=== PATIENT | male | born 2005 | race Two or more races ===

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

== ENCOUNTER 2024-08-01 14:17 | Inpatient (IN) | payer BC, MEDICAID ==
[~2024-08-01] VITALS: Ht 175.3 cm; Wt 77.7 kg
--- NOTE | 2024-08-01 14:24 | ED.PDOC ---
GI ASSESSMENT HPI Comments 19Y M with PMHx gastritis presents to ED via EMS for chief complaint abd pain x3days with nausea, vomiting, and poor appetite. Pt denies diarrhea, chest pain, and SOB. Pt has been dx with gastritis in the past and states he is experiencing similar symptoms. Pt was previously prescribed Pepsid. Time Seen by MD: 14:16 Primary Care Provider: CALE Allergies: Coded Allergies: NO KNOWN ALLERGIES (Unverified , 04/17/12) Information Source: Patient, Emergency Med Personnel Mode of Arrival: EMS Brought in by: EMS Timing: Days Duration: Since onset Prehospital treatment: IVF Quality: Sharp Vomitus: Watery Stool: Normal Severity: Moderate Recent: None Recent Hx of: None Pain Location: Diffuse Modifying Factors: Nothing Associated sign and symptoms: Nausea, Vomiting, Abdominal Pain Past Medical History Past Medical History (Other): Gastritis Surgical History: Denies all surgeries Family History Family History: Reviewed,noncontributory to illness Social History Smoker: Cigarettes Alcohol: Denies ETOH Use Drugs: Denies Drug Use Lives In: Home Constitutional: denies: chills, diaphoresis, fatigue, fever, malaise, sweats, weakness, others EENTM: denies: blurred vision, double vision, ear bleeding, ear discharge, ear drainage, ear pain, ear ringing, eye pain, eye redness, hearing loss, mouth pain, mouth swelling, nasal discharge, nose bleeding, nose congestion, nose pain, photophobia, tearing, throat pain, throat swelling, voice changes, others Respiratory: denies: cough, hemoptysis, orthopnea, SOB at rest, shortness of breath, SOB with excertion, stridor, wheezing, others Cardiovascular: denies: chest pain, dizzy spells, diaphoresis, Dyspnea on exertion, edema, irregular heart beat, left arm pain, lightheadedness, palpitations, PND, syncope, others Gastrointestinal: reports: abdominal pain, nausea, poor appetite, vomiting; denies: abdomen distended, blood streaked bowels, constipated, diarrhea, dysphagia, difficulty swallowing, hematemesis, melena, poor fluid intake, rectal bleeding, rectal pain, others Genitourinary: denies: burning, dysuria, flank pain, frequency, hematuria, incontinence, penile discharge, penile sore, pain, testicle pain, testicle swelling, urgency, others Neurological: denies: dizziness, fainting, headache, left sided numbness, left sided weakness, numbness, paresthesia, pre-existing deficit, right sided numbness, right sided weakness, seizure, speech problems, tingling, tremors, weakness, others Musculoskeletal: denies: back pain, gout, joint pain, joint swelling, muscle pain, muscle stiffness, neck pain, others Integumetry: denies: bruises, change in color, change in hair/nails, dryness, laceration, lesions, lumps, rash, wounds, others Allergic/Immunocompromised: denies: Difficulty Healing, Frequent Infections, H ana, Itching, others Hematologic/Lymphatic: denies: anemia, blood clots, easy bleeding, easy bruising, swollen glands, others Endocrine: denies: excessive hunger, excessive sweating, excessive thirst, excessive urination, flushing, intolerance to cold, intolerance to heat, unexplained weight gain, unexplained weight loss, others Psychiatric: denies: anxiety, bipolar disorder, depression, hopeless, panic disorder, schizophrenia, sleepless, suicidal, others All Other Systems: Reviewed and Negative Physical Exam General Appearance: Moderate Distress, Normal HEENT: Normal ENT Inspection, Pharynx Normal, TMs Normal Neck: Full Range of Motion, Non-Tender, Normal, Normal Inspection Respiratory: Chest Non-Tender, Lungs Clear, No Accessory Muscle Use, No Respiratory Distress, Normal Breath Sounds Cardiovascular: No Edema, No JVD, No Murmur, No Gallop, Normal Peripheral Pulses, Regular Rate/Rhythm Breast Exam: Deferred Gastrointestinal: No Organomegaly, Non Tender, No Pulsatile Mass, Normal Bowel Sounds, Soft Genitalia: Deferred Pelvic: Deferred Rectal: Deferred Extremities: No calf tenderness, Normal capillary refill, Normal inspection, Normal range of motion, Non-tender, No pedal edema Musculoskeletal : Apperance: Normal Neurologic: Alert, lead mechanical engineer II-XII nml as Tested, No Motor Deficits, Normal Affect, Normal Mood, No Sensory Deficits Cerebellar Function: NOT DONE Reflexes: NOT DONE Skin: Dry, Normal Color, Warm Peripheral Pulses: 3+ Radial (R), 3+ Radial (L) Lymphatic: No Adenopathy Was a procedure done? Was a procedure done?: No GI differential Dx Differential Diagnosis: Constipation, Diverticular disease, Esophagitis, Gastritis/PUD, Gastroenteritis, Electrolyte Imbalance, Food Poisoning, Bacterial, Viral X-Ray, Labs, Meds, VS Vital Signs Date Time Temp Pulse Resp B/P (MAP) Pulse Ox O2 Delivery O2 Flow Rate FiO2 08/01/24 14:30 98.1 65 18 114/67 (83) 97 Lab Test 08/01/24 14:34 Range/Units White Blood Count 12.3 H 4.4-10.8 10^3/uL Red Blood Count 5.02 4.5-5.90 10^6/uL Hemoglobin 15.3 13.5-17.5 g/dL Hematocrit 44.9 41.0-53.0 % Mean Corpuscular Volume 89.4 80.0-100.0 fL Mean Corpuscular Hemoglobin 30.4 28.0-32.0 pg Mean Corpuscular Hemoglobin Concent 34.0 32.0-36.0 g/dL Red Cell Distribution Width 12.4 11.8-14.3 % Platelet Count 371 140-450 10^3/uL Mean Platelet Volume 7.8 6.9-10.8 fL Neutrophils (%) (Auto) 80.7 H 37.0-80.0 % Lymphocytes (%) (Auto) 14.8 10.0-50.0 % Monocytes (%) (Auto) 4.2 0.0-12.0 % Eosinophils (%) (Auto) 0.1 0.0-7.0 % Basophils (%) (Auto) 0.2 0.0-2.0 % Neutrophils # (Auto) 10.0 H 1.6-8.6 10 ^3/uL Lymphocytes # (Auto) 1.8 0.4-5.4 10 ^3/uL Monocytes # (Auto) 0.5 0-1.3 10 ^3/uL Eosinophils # (Auto) 0 0-0.8 10 ^3/uL Basophils # (Auto) 0 0-0.2 10 ^3/uL Nucleated Red Blood Cells 0.0 % Sodium Level 141 136-145 mmol/L Potassium Level 4.0 3.5-5.1 mmol/L Chloride Level 104 98-107 mmol/L Carbon Dioxide Level 27 20-31 mmol/L Anion Gap 10 5-15 Blood Urea Nitrogen 19 9-23 mg/dL Creatinine 1.00 0.700-1.30 mg/dL Glomerular Filtration Rate Calc 110 >90 mL/min BUN/Creatinine Ratio 19.0 10.0-20.0 Serum Glucose 109 H 74-106 mg/dL Calcium Level 10.5 H 8.7-10.4 mg/dL Patient alert. Complaining of abdominal pain. Has been having symptoms for few days. Vitals stable. Answering all questions. Abdomen is soft. Establish intravenous access. Was given fluids. Was given morphine. Was given Zofran. Time of 1ST Reevaluation: 14:46 Reevaluation 1ST: Unchanged Patient Education/Counseling: Diagnosis, Treatment Family Education/Counseling: No Family Present Additional Information I reviewed the following notes from patient's past medical encounters: [facility]2021, 05/24/2019, 06/29/2015 The following tests were ordered, and results were reviewed by me: CBC, BMP, UA, drug screen Additional Information was gathered from interviewing the following independent historians: EMS I discussed treatment and results with medical personnel and hospitalist. Departure 1 Departure Time of Disposition: 14:28 Impression: Primary Impression: Acute abdominal pain Additional Impression: Gastroenteritis Disposition: ADMITTED INPATIENT Admit to: Med Surg Condition: Guarded Critical Care Note Critical Care Time?: No Stability Stability form required: No Heart Score Heart Score: Heart Score Response (Comments) Value History N/A 0 EKG N/A 0 Age N/A 0 Risk Factors N/A 0 Troponin N/A 0 Total 0 I personally scribed for VÍCTOR GONZALEZ MD ([email or web address]) on 08/01/24 at 14:24. Electronically submitted by Leslie Prescott (CNS Response). I personally scribed for VÍCTOR GONZALEZ MD ([email or web address]) on 08/01/24 at 15:16. Electronically submitted by Leslie Prescott (CNS Response). VÍCTOR GONZALEZ MD Aug 01, 2024 14:24
[2024-08-01 14:49] LABS: Basophils # (auto) 0 10 ^3/uL (0-0.2); Basophils % (auto) 0.2 % (0.0-2.0); Eosinophils # (auto) 0 10 ^3/uL (0-0.8); Eosinophils % (auto) 0.1 % (0.0-7.0); Hematocrit 44.9 % (41.0-53.0); Hemoglobin 15.3 g/dL (13.5-17.5); Lymphocytes # (auto) 1.8 10 ^3/uL (0.4-5.4); Lymphocytes % (auto) 14.8 % (10.0-50.0); Mean Corpuscular Hemoglobin 30.4 pg (28.0-32.0); Mean Corpuscular Volume 89.4 fL (80.0-100.0); Monocytes # (auto) 0.5 10 ^3/uL (0-1.3); Monocytes % (auto) 4.2 % (0.0-12.0); Neutrophils % (auto) 80.7 % (37.0-80.0); Platelet Count (auto) 371 10^3/uL (140-450); Red Blood Cells 5.02 10^6/uL (4.5-5.90); Red Cell Distribution Width 12.4 % (11.8-14.3); White Blood Cell 12.3 10^3/uL (4.4-10.8)
[2024-08-01 14:59] LABS: Chloride 104 mmol/L (98-107); Sodium 141 mmol/L (136-145)
[2024-08-01 15:00] LABS: Anion Gap 10 (5-15); Carbon Dioxide 27 mmol/L (20-31)
[2024-08-01 15:05] LABS: Blood Urea Nitrogen 19 mg/dL (9-23); Calcium 10.5 mg/dL (8.7-10.4); Glucose 109 mg/dL (74-106)
[2024-08-01] MEDS ORDERED: MORPHINE SULFATE INJ 2 MG/ml SYRG IV PRN (16:30)
[2024-08-01] MEDS ORDERED: SODIUM CHLORIDE 0.9% 1,000 ML IV SCH (16:30)
[2024-08-01] MEDS ORDERED: NITROGLYCERIN 0.4 MG SL TAB SL PRN (16:30)
--- NOTE | 2024-08-01 16:50 | DVH ---
CT ABDOMEN AND PELVIS WITHOUT CONTRAST CLINICAL HISTORY: colitis TECHNIQUE: Multiple contiguous axial images of the abdomen and pelvis without intravenous contrast. The images were reformatted degenerate coronal and sagittal reconstructions. All CT scans at this medical facility are performed using dose modulation techniques as appropriate t o a performed exam including the following:Automated exposure control was utilized; adjustment of the MA and/or KV according to patient size; and use of iterative reconstruction technique. Radiation Dose Information: CT Dose: CTDI volume is 12 mGy. Dose-length product is 727 mGy*cm Comparison: None FINDINGS: Evaluation of the abdomen and pelvis is limited without intravenous contrast. The liver, gallbladder, pancreas, kidneys, adrenal glands, and spleen appear within normal limits. There is no gross evidence of abdominal lymphadenopathy. There is no free fluid or free air. The stomach grossly appears unremarkable. The small and large bowel loops demonstrate normal caliber . There is large amount of stool throughout the colon. The appendix is not seen. There are no secon malena signs of acute appendicitis. The abdominal aorta and IVC appear within normal limits. The bladder appears unremarkable for the degree of distention. Pelvic organ appears within normal wallace its. There is no gross evidence of a pelvic mass. There is no free fluid collection. Lung bases are clear. There is no acute osseous abnormality. IMPRESSION: 1. There is no acute process in the abdomen and pelvis. 2. Large amount of stool throughout the colon. HS:Y
[2024-08-01] MEDS: SODIUM CHLORIDE 0.9% 1,000 ML IV ONE (17:13)
[2024-08-01] MEDS: ONDANSETRON HCL 4 MG/2 ML VIAL IV ONE (17:15)
[2024-08-01] MEDS: cefTRIAXone 1GM/50ML D5W 50 ML IV ONE (17:17)
--- NOTE | 2024-08-01 17:32 | DVHHPRES ---
History of Present Illness Resident Creating Document: YESSICA REYES RESIDENT Reason for Visit: acute abdominal pain with hematemesis History of Present Illness 19-year-old male patient with history of gastritis and clavicle fracture in 2019, presented with the acute epigastric abdominal pain and hematemesis. The pain is described as severe, burning quality and rated as 9/10 intensity. The patient reports similar episodes 3 days ago and a history of recurrent gastritis symptoms over the past 7 months he reports not having appetite when this abdominal pain develops, he feels the food will make the pain worse. Previously he manage his condition with Pepcid and Zofran at home, but this time he presented to the hospital due to associated vomiting of moderate amount of bright red blood and history of dark stools. The patient also experienced intermittent constipation. He denies eating spicy foods or other aggravating foods. He smokes 3 cigarettes per day and denies using alcohol , marijuana or any other drugs. Patient's vital signs are stable CT abdomen showed Large amount of stool throughout the colon. Based on this patient's clinical status this patient will be admitted, GI was consulted and the patient was started on sucralfate, pantoprazole, lactate Ringer 100 mL /h and patient was placed on NPO. Morphine was started for pain management and Zofran to control nausea. Past medical history: Gastritis Past surgical history: Right clavicle fracture repair: 2019 Family history: Patient's father has been diagnosed with a Helicobacter pylori. Social history: Patient smokes 3 cigarettes, denies using alcohol or drugs Primary care doctor:Dr. Lopez GI: Constipation, Gastritis Past Medical History Gastritis Past Surgical History: Other (Right clavicle fracture repair) Smoke: <1 pack per day ALCOHOL: none Drugs: None Lives: with Family Domestic Violence: Neg Review of Systems Review of Systems Constitutional: No: Fever, Chills, Sweats, Weakness, Malaise, Other Eyes: No: Pain, Vision change, Conjunctivae inflammation, Eyelid inflammation, Other, Redness ENT: No: Ear pain, Ear discharge, Nose pain, Nose discharge, Nose congestion, Mouth pain, Mouth swelling, Throat pain, Throat swelling, Other Respiratory: No Wheezing, Hemoptysis, Pleuritic Pain, Sputum, Wheezing, Other Cardiovascular: No: Chest Pain, Palpitations, Orthopnea, Paroxysmal Noc. Dyspnea, Edema, Lt Headedness, Other Gastrointestinal: Reports burning epigastric pain, hematemesis, black stools, intermittent constipation episode, nausea and vomiting. Musculoskeletal: No: other, neck pain, shoulder pain, arm pain, back pain, hand pain, leg pain, foot pain Neurological:; No: Weakness, Numbness, Incoordination, Change in speech, Confusion, Seizures Allergies: Coded Allergies: NO KNOWN ALLERGIES (Unverified , 04/17/12) Medications Current Medications Medications Dose Ordered Sig/Brooke Route Start Time Stop Time Status Last Admin Dose Admin Acetaminophen 650 mg Q6HP PRN PO 08/01/24 16:30 Morphine Sulfate 2 mg Q4HPRN PRN IV 08/01/24 16:30 Nitroglycerin 0.4 mg Q5MINP PRN SL 08/01/24 16:30 Morphine Sulfate 2 mg Q30M PRN IV 08/01/24 16:30 Pantoprazole Sodium 40 mg DAILY IV 08/02/24 10:00 UNV Sucralfate 1 gm BID@0600,2200 GT 08/01/24 22:00 UNV Lactated Ringer's 1,000 ml @ 100 mls/hr Q10H IV 08/01/24 17:15 UNV Exam Vital Signs Vital Signs Date Time Temp Pulse Resp B/P (MAP) Pulse Ox O2 Delivery O2 Flow Rate FiO2 08/01/24 14:30 98.1 65 18 114/67 (83) 97 Exam Examination General Appearance: Alert, Oriented X3, Cooperative, moderate acute distress Respiratory: Clear to auscultation, Normal air movement Cardiovascular: Regular rate, Normal S1, Normal S2 Abdominal: Normal bowel sounds Extremities: No cyanosis, No edema, Normal pulses, No tenderness/swelling Skin: No rashes, No breakdown Neuro: Normal gait, Normal speech, Strength at 5/5 X4 ext, Normal tone, Sensation intact, Reflexes 2+ Psych/Mental Status: Mental status NL, Mood NL Labs/Xrays Labs Test 08/01/24 16:44 08/01/24 14:34 Range/Units White Blood Count 12.3 H 4.4-10.8 10^3/uL Red Blood Count 5.02 4.5-5.90 10^6/uL Hemoglobin 15.3 13.5-17.5 g/dL Hematocrit 44.9 41.0-53.0 % Mean Corpuscular Volume 89.4 80.0-100.0 fL Mean Corpuscular Hemoglobin 30.4 28.0-32.0 pg Mean Corpuscular Hemoglobin Concent 34.0 32.0-36.0 g/dL Red Cell Distribution Width 12.4 11.8-14.3 % Platelet Count 371 140-450 10^3/uL Mean Platelet Volume 7.8 6.9-10.8 fL Neutrophils (%) (Auto) 80.7 H 37.0-80.0 % Lymphocytes (%) (Auto) 14.8 10.0-50.0 % Monocytes (%) (Auto) 4.2 0.0-12.0 % Eosinophils (%) (Auto) 0.1 0.0-7.0 % Basophils (%) (Auto) 0.2 0.0-2.0 % Neutrophils # (Auto) 10.0 H 1.6-8.6 10 ^3/uL Lymphocytes # (Auto) 1.8 0.4-5.4 10 ^3/uL Monocytes # (Auto) 0.5 0-1.3 10 ^3/uL Eosinophils # (Auto) 0 0-0.8 10 ^3/uL Basophils # (Auto) 0 0-0.2 10 ^3/uL Nucleated Red Blood Cells 0.0 % Sodium Level 141 136-145 mmol/L Potassium Level 4.0 3.5-5.1 mmol/L Chloride Level 104 98-107 mmol/L Carbon Dioxide Level 27 20-31 mmol/L Anion Gap 10 5-15 Blood Urea Nitrogen 19 9-23 mg/dL Creatinine 1.00 0.700-1.30 mg/dL Glomerular Filtration Rate Calc 110 >90 mL/min BUN/Creatinine Ratio 19.0 10.0-20.0 Serum Glucose 109 H 74-106 mg/dL Calcium Level 10.5 H 8.7-10.4 mg/dL Assessment/Plan Assessment/Plan #Septicemia likely due to gastroenteritis based on WBC 12.3 , Lactic acid 2.3 #upper GI bleeding likely due to erosive gastropathy #Acute epigastric pain secondary to gastropathy? duodenopathy? #Hematemesis - patient is hemodynamically stable - admit to med surge - pantoprazole 40 mg IV b.i.d. - Carafate b.i.d. - NPO - Lactate Ringer's IV - COVID-19 test - Influenza type a type B test - EKG - Coagulation panel - H pylori urea breath test - Chest x-rays - Hepatic panel - cafetriaxone iv - Metronidazole IV - KUB #Nicotine dependency - smoking cessation counseling # Severe constipation - dulcolax 10 mg PO - Lactulose 60 mg PO Case discussed with Dr. Ca Goals of care discussed with the patient for 28 minutes Code status: Full code Plan discussed with: Patient My Orders Orders - YESSICA REYES RESIDENT Procedure Category Date Status Time Admit ADMIT 08/01/24 Transmitted 16:27 Allergies MAYA 08/01/24 In Process 16:27 Code Status CODE 08/01/24 Transmitted 16:27 Complete Blood Count LAB 08/02/24 Verified 04:00 Comprehensive LAB 08/02/24 Verified Metabolic Panel 04:00 Npo (Nothing By DIET 08/01/24 Transmitted Mouth) Diet Dinner Acetaminophen Tablet PHA 08/01/24 In Process (Tylenol Tablet) 16:30 Morphine Sulfate PHA 08/01/24 In Process Injection 16:30 Nitroglycerin PHA 08/01/24 In Process Sublingual (Ntrostat 16:30 Morphine Sulfate PHA 08/01/24 In Process Injection 16:30 Oxygen By Nasal RT 08/01/24 Transmitted Cannula 16:27 Stat Ekg For Chest MAYA 08/01/24 In Process Pain 16:27 Notify Of Changes MAYA 08/01/24 In Process From Base 16:27 Linux Admin Engineer For [facility] 08/01/24 In Process 24 Hours 16:27 Emergency Dysrhythmia MAYA 08/01/24 In Process Protocol 16:27 Rhythm Strips Once [facility] 08/01/24 In Process Every Shift 16:27 Stool Occult Blood LAB 08/01/24 Logged 16:29 Covid19 Antigen [place] LAB 08/01/24 Logged Rapid Influenza A&B LAB 08/01/24 Logged 16:29 Thyroid Stimulating LAB 08/01/24 Logged Hormone 16:29 Pantoprazole PHA 08/02/24 Logged (Protonix) 10:00 Pantoprazole PHA 08/01/24 Logged (Protonix) 17:15 Sucralfate Susp PHA 08/01/24 Logged (Carafate Susp) 17:15 Sucralfate Susp PHA 08/01/24 Logged (Carafate Susp) 22:00 * [facility] [employer] CONS 08/01/24 Transmitted 17:02 Lactated Ringer's PHA 08/01/24 Logged 17:15 Chest Portable XY 08/01/24 Logged 17:02 H. Pylori Urea Breath LAB 08/01/24 Logged Test 17:02 Hemoglobin A1c LAB 08/01/24 In Process 17:02 Vitamin B12 LAB 08/01/24 In Process 17:02 Folate (Folic Acid) LAB 08/01/24 In Process 17:02 Lactic Acid W/ Reflex LAB 08/01/24 Logged Order 17:06 Prothrombin Time W/ LAB 08/01/24 Logged INR 17:06 Urinalysis LAB 08/01/24 Uncollected 17:06 Date of Service: Aug 01, 2024 Billing Provider: SANDRA CA MD Common Visit Codes: [id number] INP/OBS CARE (HIGH) YESSICA REYES RESIDENT Aug 01, 2024 17:32 SANDRA CA MD Aug 01, 2024 20:18
[2024-08-01 17:59] LABS: INR 1.18 (0.9-1.15); Prothrombin Time 12.4 sec (9.3-11.8)
[2024-08-01 18:05] LABS: Folate (Folic Acid) 19.86 ng/mL (>5.38)
[2024-08-01 18:07] LABS: Lactic Acid w/Reflex 2.3 mmol/L (0.4-2.0)
[2024-08-01] MEDS: PANTOPRAZOLE 40 MG/10 ML VIAL INJ IV ONE (18:09)
[2024-08-01] MEDS: metroNIDAZOLE 500MG/100ML 100 ML IV ONE (18:10)
[2024-08-01] MEDS: MORPHINE SULFATE INJ 2 MG/ml SYRG IV PRN (18:15)
--- NOTE | 2024-08-01 18:24 | DVH ---
CHEST RADIOGRAPH Indication: rule out PNA Technique: Single frontal view of the chest was obtained Comparison: CHEST PORTABLE on DOS: 06/17/21 FINDINGS: Lines and Tubes: None Lungs: No focal consolidation. Pleura: No effusion. No pneumothorax. Cardiomediastinal contours: Unremarkable Bones: No acute osseous abnormality. IMPRESSION: No acute cardiopulmonary disease.
[2024-08-01] MEDS: SUCRALFATE 1 GM/10 ML ORAL SUSP GT ONE (18:33)
[2024-08-01] MEDS: LACTULOSE 20Gm/30ML SOLN PO ONE (19:42)
[2024-08-01] MEDS: BISACODYL 5 MG EC TAB PO ONE (19:52)
[2024-08-01 20:29] LABS: Albumin 4.5 g/dL (3.2-4.8); Bilirubin, Direct 0.1 mg/dL (<0.3); Bilirubin, Total 0.4 mg/dL (0.2-1.0)
[2024-08-01] MEDS: LACTATED RINGER'S 1,000 ML IV SCH (20:30)
[2024-08-01] MEDS ORDERED: SUCRALFATE 1 GM/10 ML ORAL SUSP GT SCH (22:00)
[2024-08-02] VITALS (7 sets, daily range): BP systolic 95–125; BP diastolic 55–72; PULSE 60–79; RESP 16–20; TEMP 97.8–99.6; O2SAT 93–100
[2024-08-02] MEDS: metroNIDAZOLE 500MG/100ML 100 ML IV SCH (00:04)
[2024-08-02] MEDS: SUCRALFATE 1 GM/10 ML ORAL SUSP PO SCH (00:04)
[2024-08-02] MEDS: ONDANSETRON HCL 4 MG/2 ML VIAL IV ONE (07:02)
[2024-08-02 07:47] LABS: Basophils # (auto) 0 10 ^3/uL (0-0.2); Basophils % (auto) 0.2 % (0.0-2.0); Eosinophils # (auto) 0 10 ^3/uL (0-0.8); Hemoglobin 13.1 g/dL (13.5-17.5); Lymphocytes # (auto) 2.6 10 ^3/uL (0.4-5.4); Lymphocytes % (auto) 19.9 % (10.0-50.0); Mean Corpuscular Hemoglobin 30.7 pg (28.0-32.0); Mean Corpuscular Hgb Conc. 34.5 g/dL (32.0-36.0); Mean Corpuscular Volume 88.9 fL (80.0-100.0); Monocytes # (auto) 1.2 10 ^3/uL (0-1.3); Monocytes % (auto) 9.2 % (0.0-12.0); Neutrophils # (auto) 9.3 10 ^3/uL (1.6-8.6); Neutrophils % (auto) 70.7 % (37.0-80.0); Platelet Count (auto) 305 10^3/uL (140-450); Red Blood Cells 4.27 10^6/uL (4.5-5.90); Red Cell Distribution Width 12.5 % (11.8-14.3); White Blood Cell 13.1 10^3/uL (4.4-10.8)
[2024-08-02 08:01] LABS: Alanine Aminotransferase 18 U/L (7-40); Albumin 4.1 g/dL (3.2-4.8); Alkaline Phosphatase 71 U/L (46-116); Anion Gap 9 (5-15); Aspartate Aminotransferase 13 U/L (13-40); BUN/Creatinine Ratio 22.4 (10.0-20.0); Blood Urea Nitrogen 22 mg/dL (9-23); Calcium 9.6 mg/dL (8.7-10.4); Carbon Dioxide 26 mmol/L (20-31); Glucose 104 mg/dL (74-106); Potassium 3.8 mmol/L (3.5-5.1); Sodium 143 mmol/L (136-145)
[2024-08-02 08:02] LABS: Bilirubin, Total 0.3 mg/dL (0.2-1.0); Total Protein 6.5 g/dL (5.7-8.2)
[2024-08-02 08:06] LABS: Chloride 108 mmol/L (98-107)
[2024-08-02] MEDS: PANTOPRAZOLE 40 MG/10 ML VIAL INJ IV SCH (10:00)
[2024-08-02] MEDS ORDERED: PANTOPRAZOLE 40 MG/10 ML VIAL INJ IV SCH (10:00)
[2024-08-02] MEDS: cefTRIAXone 1GM/50ML D5W 50 ML IV SCH (10:19)
[2024-08-02 11:14] LABS: Urine Bacteria FEW /hpf (None Seen); Urine Blood Negative /uL (Negative); Urine Clarity Ex.Turbid (Clear); Urine Color Light-Orange (Yellow); Urine Mucus FEW (None Seen); Urine Protein, UAD 1+ (Negative); Urine Specific Gravity 1.043 (1.001-1.035); Urine Urobilinogen Normal (Negative); Urine WBC 5 /hpf (0 - 3); Urine pH 5.5 (5.0-9.0)
[2024-08-02 11:24] LABS: Amphetamine Screen, Urine Neg (NEGATIVE); Opiate Scree,Urine Pos (NEGATIVE)
[2024-08-02 11:25] LABS: COVID19 ANTIGEN SOFIA FIA NEGATIVE (NEGATIVE); Rapid Influenza A Negative (Negative); Rapid Influenza B Negative (Negative)
[2024-08-02 11:28] LABS: Barbiturate Scree,Urine Neg (NEGATIVE); Benzodiazephine Screen, Urine Neg (NEGATIVE); Cannabinoid Screen, Urine Neg (NEGATIVE); Cocaine Screen, Urine Neg (NEGATIVE); Phencyclidine Screen, Urine Neg (NEGATIVE)
[2024-08-02] MEDS: LACTULOSE 20Gm/30ML SOLN PO ONE (12:15)
[2024-08-02] MEDS: BISACODYL 5 MG EC TAB PO ONE (14:41)
[2024-08-02] MEDS: METOCLOPRAMIDE HCL 5MG/ml INJ 2ml VIAL IV ONE (14:41)
[2024-08-02] MEDS: POLYETHYLENE GLYCOL 17 GM PWDR PO ONE (16:29)
--- NOTE | 2024-08-02 19:43 | DVHPNRES ---
Progress Note Date Seen: Aug 02, 2024 Resident Creating Document: YESSICA REYES RESIDENT Medical Necessity Reason Pt with a Central, PICC or Fol: No Subjective Review of Systems 19-year-old male patient with history of gastritis and clavicle fracture in 2019, presented with the acute epigastric abdominal pain and hematemesis. The pain is described as severe, burning quality and rated as 9/10 intensity. The patient reports similar episodes 3 days ago and a history of recurrent gastritis symptoms over the past 7 months he reports not having appetite when this abdominal pain develops, he feels the food will make the pain worse. Previously he manage his condition with Pepcid and Zofran at home, but this time he presented to the hospital due to associated vomiting of moderate amount of bright red blood and history of dark stools. Patient examined at bedside, reports bruising in his symptoms continue vomiting small amount of blood, hemoglobin decreased from 15.3 to13.1 for which we will continue monitor vital signs and hematocrit and hemoglobin levels, tomorrow patient will be seen by Gastroenterology team. Metoclopramide PRN for nausea control. Acetaminophen foe pain control patient was started on Miralax for constipation. Patient reports: Feels better Changes from previous H/P or p: Changes Objective vital signs Vital Sign Date Time Temp Pulse Resp B/P (MAP) Pulse Ox O2 Delivery O2 Flow Rate FiO2 08/02/24 17:20 97.8 62 16 123/63 (83) 93 97.8 08/02/24 08:00 Room Air* 0 21 Total Intake and Output 08/01/24 08/01/24 08/02/24 15:00 23:00 07:00 Intake Total 50 ml 50 ml Output Total 0 ml Balance 50 ml 50 ml medications Current Medications Medications Dose Ordered Sig/Brooke Route Start Time Stop Time Status Last Admin Dose Admin Acetaminophen 650 mg Q6HP PRN PO 08/01/24 16:30 Morphine Sulfate 2 mg Q4HPRN PRN IV 08/01/24 16:30 08/02/24 10:32 2 MG Nitroglycerin 0.4 mg Q5MINP PRN SL 08/01/24 16:30 Morphine Sulfate 2 mg Q30M PRN IV 08/01/24 16:30 Lactated Ringer's 1,000 ml @ 100 mls/hr Q10H IV 08/01/24 17:15 08/02/24 10:39 100 MLS/HR Pantoprazole Sodium 40 mg BID IV 08/02/24 10:00 Ceftriaxone Sodium 50 ml @ 100 mls/hr DAILY@09 IV 08/02/24 09:00 08/02/24 10:19 100 MLS/HR Metronidazole 100 ml @ 100 mls/hr Q8HR IV 08/01/24 22:00 08/02/24 14:42 100 MLS/HR Sucralfate 1 gm BID@0600,2200 PO 08/01/24 22:00 08/02/24 06:33 1 GM Metoclopramide HCl 10 mg BID PRN IV 08/02/24 15:45 Examination Examination General Appearance: Alert, Oriented X3, Cooperative, No acute distress Respiratory: Clear to auscultation, Normal air movement Cardiovascular: Regular rate, Normal S1, Normal S2 Abdominal: patient repost constipation, recurrent bloody emesis episodes, bowels sounds are present Extremities: No cyanosis, No edema, Normal pulses, No tenderness/swelling Skin: No rashes, No breakdown Neuro: Normal gait, Normal speech, Strength at 5/5 X4 ext, Normal tone, Sensation intact Psych/Mental Status: Mental status NL, Mood NL laboratory and microbiology Laboratory Tests 08/02/24 07:28 Test 08/02/24 07:28 Range/Units Serum Glucose 104 74-106 mg/dL Problem List/Assessment/Plan Problem List/Assessment/Plan #Septicemia likely due to gastroenteritis based on WBC 12.3 , Lactic acid 2.3 #upper GI bleeding likely due to erosive gastropathy #Acute epigastric pain secondary to gastropathy? duodenopathy? #Hematemesis - patient is hemodynamically stable - [place] [facility] [place] GI consult pending - pantoprazole 40 mg IV b.i.d. - reglan 10mg BID - Carafate b.i.d. - clear liquid diet - Lactate Ringer's IV - H pylori urea breath test, pending - Chest x-rays - Hepatic panel - cafetriaxone iv - Metronidazole IV - KUB #Nicotine dependency - smoking cessation counseling # Severe constipation - dulcolax 10 mg PO - Miralax po Discussed with Dr. Ca Goals of care discussed with the patient for 36 minutes Code status: Full code Plan discussed with: Patient My Orders My Orders Orders - YESSICA REYES RESIDENT Procedure Category Date Status Time * Dietary Consult CONS 08/02/24 Transmitted 03:53 Clear Liq Diet DIET 08/02/24 Transmitted Lunch Metoclopramide PHA 08/02/24 In Process Injection (Reglan 15:45 Dietary Evaluation Review Comments: Avoid smoking and any recreational drugs or alcohol. consider clear liquid for hydration. Expected Outcomes/Goals: recovered GI function. Date of Service: Aug 02, 2024 Billing Provider: SANDRA CA MD Common Visit Codes: [id number] INP/OBS CARE(HIGH) YESSICA REYES RESIDENT Aug 02, 2024 19:43 SANDRA CA MD Aug 03, 2024 11:35
[2024-08-02 22:12] LABS: Hematocrit 41.9 % (41.0-53.0); Hemoglobin 14.1 g/dL (13.5-17.5)
[2024-08-03 01:00] VITALS: BP 107/55; PULSE 68; RESP 20; TEMP 98.4; O2SAT 98
[2024-08-03 05:00] VITALS: BP 110/60; PULSE 70; RESP 20; TEMP 98.8; O2SAT 99
[2024-08-03 06:36] LABS: Basophils # (auto) 0 10 ^3/uL (0-0.2); Basophils % (auto) 0.3 % (0.0-2.0); Eosinophils # (auto) 0 10 ^3/uL (0-0.8); Eosinophils % (auto) 0.3 % (0.0-7.0); Hematocrit 37.2 % (41.0-53.0); Lymphocytes # (auto) 2.9 10 ^3/uL (0.4-5.4); Lymphocytes % (auto) 29.1 % (10.0-50.0); Mean Corpuscular Hemoglobin 31.3 pg (28.0-32.0); Mean Corpuscular Volume 89.4 fL (80.0-100.0); Monocytes # (auto) 0.8 10 ^3/uL (0-1.3); Monocytes % (auto) 7.8 % (0.0-12.0); Neutrophils # (auto) 6.1 10 ^3/uL (1.6-8.6); Neutrophils % (auto) 62.5 % (37.0-80.0); Platelet Count (auto) 288 10^3/uL (140-450); Red Blood Cells 4.17 10^6/uL (4.5-5.90); Red Cell Distribution Width 12.3 % (11.8-14.3); White Blood Cell 9.8 10^3/uL (4.4-10.8)
[2024-08-03 06:38] LABS: Anion Gap 10 (5-15); Carbon Dioxide 27 mmol/L (20-31); Potassium 3.6 mmol/L (3.5-5.1); Sodium 145 mmol/L (136-145)
[2024-08-03 06:39] LABS: Calcium 9.5 mg/dL (8.7-10.4)
[2024-08-03 06:44] LABS: BUN/Creatinine Ratio 20.7 (10.0-20.0); Blood Urea Nitrogen 17 mg/dL (9-23); Glucose 83 mg/dL (74-106)
[2024-08-03 06:45] LABS: Chloride 108 mmol/L (98-107)
[2024-08-03 09:00] VITALS: BP 119/67; PULSE 68; RESP 19; TEMP 97.8; O2SAT 97
[2024-08-03] MEDS ORDERED: SUCR1SUS26 PO (10:30)
[2024-08-03] MEDS ORDERED: PANT40TA2 PO (10:30)
--- NOTE | 2024-08-03 11:06 | DVHINCON2 ---
Date of service: Aug 03, 2024 Referring Physician Lonnie Clarke Reason for Consultation Epigastric pain History of Present Illness 19-year-old male patient with history of gastritis and clavicle fracture in 2019, presented with the acute epigastric abdominal pain and hematemesis. The pain is described as severe, burning quality and rated as 9/10 intensity. The patient reports similar episodes 3 days ago and a history of recurrent gastritis symptoms over the last 18 months; he reports not having appetite when this abdominal pain develops, he feels the food will make the pain worse. Previously he manage his condition with Pepcid and Zofran at home, but this time he presented to the hospital due to associated vomiting of moderate amount of bright red blood and history of dark stools. The patient also experienced intermittent constipation. He denies eating spicy foods or other aggravating foods. He smokes a pack of cigarettes per day and denies using alcohol , marijuana or any other drugs. Patient's vital signs are stable CT abdomen showed Large amount of stool throughout the colon. Past Medical History Chronic Gastritis Past Surgical History Clavicular fracture Allergies: Coded Allergies: NO KNOWN ALLERGIES (Unverified , 04/17/12) Home Meds Active Scripts Pantoprazole Sodium Sesquihydr (Protonix) 40 Mg Tab, 40 MG PO BID for 30 Days, #60 TAB Prov:ESTEPHANIA MATTHEW RESIDENT 08/03/24 Sucralfate (CARAFATE SUSP) 1 Gm/10 Ml Ss, 1 GM PO BID for 14 Days, #1 GM Prov:ESTEPHANIA MATTHEW RESIDENT 08/03/24 Current Medications Current Medications Medications (Trade) Dose Ordered Sig/Brooke Route PRN Reason Start Time Stop Time Status Last Admin Metoclopramide HCl (Reglan Injection) 10 mg BID PRN IV Nausea/Vomiting 08/02/24 15:45 Vital Signs Vital Signs Date Time Temp Pulse Resp B/P (MAP) Pulse Ox O2 Delivery O2 Flow Rate FiO2 08/03/24 09:00 97.8 68 19 119/67 (84) 97 97.8 08/02/24 20:00 Room Air* 0 21 Physical Exam General Appearance: Alert, Oriented X3, Cooperative, no distress Respiratory: Clear to auscultation, Normal air movement Cardiovascular: Regular rate, Normal S1, Normal S2 Abdominal: Normal bowel sounds Extremities: No cyanosis, No edema, Normal pulses, No tenderness/swelling Skin: No rashes, No breakdown Neuro: Normal gait, Normal speech, nonfocal Psych/Mental Status: Mental status NL, Mood NL Labs/Diagnostic Data Labs Test 08/03/24 05:47 08/02/24 10:55 08/02/24 10:30 08/02/24 07:28 Range/Units White Blood Count 9.8 # 4.4-10.8 10^3/uL Red Blood Count 4.17 L 4.5-5.90 10^6/uL Hemoglobin 13.0 L 13.5-17.5 g/dL Hematocrit 37.2 #L 41.0-53.0 % Mean Corpuscular Volume 89.4 80.0-100.0 fL Mean Corpuscular Hemoglobin 31.3 28.0-32.0 pg Mean Corpuscular Hemoglobin Concent 35.0 32.0-36.0 g/dL Red Cell Distribution Width 12.3 11.8-14.3 % Platelet Count 288 140-450 10^3/uL Mean Platelet Volume 8.2 6.9-10.8 fL Neutrophils (%) (Auto) 62.5 37.0-80.0 % Lymphocytes (%) (Auto) 29.1 10.0-50.0 % Monocytes (%) (Auto) 7.8 0.0-12.0 % Eosinophils (%) (Auto) 0.3 0.0-7.0 % Basophils (%) (Auto) 0.3 0.0-2.0 % Neutrophils # (Auto) 6.1 1.6-8.6 10 ^3/uL Lymphocytes # (Auto) 2.9 0.4-5.4 10 ^3/uL Monocytes # (Auto) 0.8 0-1.3 10 ^3/uL Eosinophils # (Auto) 0 0-0.8 10 ^3/uL Basophils # (Auto) 0 0-0.2 10 ^3/uL Nucleated Red Blood Cells 0.0 % Sodium Level 145 136-145 mmol/L Potassium Level 3.6 3.5-5.1 mmol/L Chloride Level 108 H 98-107 mmol/L Carbon Dioxide Level 27 20-31 mmol/L Anion Gap 10 5-15 Blood Urea Nitrogen 17 9-23 mg/dL Creatinine 0.82 0.700-1.30 mg/dL Glomerular Filtration Rate Calc 128 >90 mL/min BUN/Creatinine Ratio 20.7 H 10.0-20.0 Serum Glucose 83 74-106 mg/dL Calcium Level 9.5 8.7-10.4 mg/dL Urine Color Light-orange Yellow Urine Clarity Ex.turbid Clear Urine pH 5.5 5.0-9.0 Urine Specific [place] 1.043 H 1.001-1.035 Urine Protein 1+ H Negative Urine Ketones 1+ H Negative Urine Blood Negative Negative /uL Urine Nitrite Negative Negative Urine Bilirubin Negative Negative Urine Urobilinogen Normal Negative mg/dL Urine Leukocyte Esterase Negative Negative /uL Urine RBC None seen 0 - 3 /hpf Urine WBC 5 0 - 3 /hpf Urine Squamous Epithelial Cells Few <5 /hpf Urine Bacteria Few H None Seen /hpf Urine Mucus Few None Seen Urine Glucose Normal Normal mg/dL Urine Opiates Screen Pos NEGATIVE Urine Fentanyl Screen Pos NEGATIVE Urine Barbiturates Screen Neg NEGATIVE Urine Phencyclidine Screen Neg NEGATIVE Urine Amphetamines Screen Neg NEGATIVE Urine Benzodiazepines Screen Neg NEGATIVE Urine Cocaine Screen Neg NEGATIVE Urine Cannabinoids Screen Neg NEGATIVE Influenza Type A Antigen Negative Negative Influenza Type B Antigen Negative Negative SARS-CoV-2 Antigen (Rapid) Negative NEGATIVE Total Bilirubin 0.3 0.2-1.0 mg/dL Aspartate Amino Transferase (AST) 13 13-40 U/L Alanine Aminotransferase (ALT) 18 7-40 U/L Alkaline Phosphatase 71 46-116 U/L Total Protein 6.5 5.7-8.2 g/dL Albumin 4.1 3.2-4.8 g/dL Test 08/02/24 00:18 08/01/24 19:15 08/01/24 17:19 08/01/24 14:34 Range/Units Lactic Acid Level 1.7 0.4-2.0 mmol/L Direct Bilirubin 0.1 <0.3 mg/dL Plasma/Serum Blood Alcohol 5.2 <10 mg/dL Prothrombin Time 12.4 H 9.3-11.8 sec Prothrombin Time INR 1.18 H 0.9-1.15 Hemoglobin A1c 5.1 <5.7 % A1C Vitamin B12 Level 541 211-911 pg/mL Folic Acid 19.86 >5.38 ng/mL Thyroid Stimulating Hormone (TSH) 0.49 L 0.55-4.78 uIU/mL CT SCAN ABD PELVIS IMPRESSION: 1. There is no acute process in the abdomen and pelvis. 2. Large amount of stool throughout the colon. Problems(with codes): (1) Gastritis (2) Epigastric pain (3) Acute abdominal pain Plan/Recommendation Plan Protonix 40 mg p.o. twice a day Carafate 1 g p.o. twice a day Patient was counseled about discontinuing smoking Patient was advised an endoscopy as he has never had one Patient decided to get the endoscopic done as an inpatient because of recurrent persistent symptoms Plan discussed with: Patient, Other (Lonnie Peterson) VANITA LOWERY MD Aug 03, 2024 11:06
--- NOTE | 2024-08-03 12:04 | DVHPNRES ---
Progress Note Date Seen: Aug 03, 2024 Resident Creating Document: YESSICA REYES RESIDENT Medical Necessity Reason Pt with a Central, PICC or Fol: No Subjective Review of Systems 19-year-old male patient with history of gastritis and clavicle fracture in 2019, presented with the acute epigastric abdominal pain and hematemesis. The pain is described as severe, burning quality and rated as 9/10 intensity. The patient reports similar episodes 3 days ago and a history of recurrent gastritis symptoms over the past 7 months he reports not having appetite when this abdominal pain develops, he feels the food will make the pain worse. Previously he manage his condition with Pepcid and Zofran at home, but this time he presented to the hospital due to associated vomiting of moderate amount of bright red blood and history of dark stools. Patient examined at bedside, reports improvement in his symptoms, he denies vomiting episodes today but reports still having mild epigastric abdominal discomfort on palpation. Hemoglobin today is 13. White blood cell count today WNL. Patient recent drug screening went back positive for fentanyl and opiates, previously patient denies using drugs, today he admit he used ecstasy before this event happened. He also reports using cocaine and marijuana in the past. GI consult was today, they recommend continue Protonix p.o., Carafate p.o. patient will keep NPO since midnight and endoscopy is being scheduled for tomorrow. Patient reports no bowel movement since 2 days ago, otherwise the abdomen is not distended and bowel sounds are present patient currently on MiraLax and Dulcolax. Objective vital signs Vital Sign Date Time Temp Pulse Resp B/P (MAP) Pulse Ox O2 Delivery O2 Flow Rate FiO2 08/03/24 09:00 97.8 68 19 119/67 (84) 97 97.8 08/02/24 20:00 Room Air* 0 21 Total Intake and Output 08/02/24 08/02/24 08/03/24 15:00 23:00 07:00 Intake Total 150 ml 750 ml 1900 ml Balance 150 ml 750 ml 1900 ml medications Current Medications Medications Dose Ordered Sig/Brooke Route Start Time Stop Time Status Last Admin Dose Admin Acetaminophen 650 mg Q6HP PRN PO 08/01/24 16:30 Morphine Sulfate 2 mg Q4HPRN PRN IV 08/01/24 16:30 08/02/24 22:52 2 MG Nitroglycerin 0.4 mg Q5MINP PRN SL 08/01/24 16:30 Morphine Sulfate 2 mg Q30M PRN IV 08/01/24 16:30 Lactated Ringer's 1,000 ml @ 100 mls/hr Q10H IV 08/01/24 17:15 08/02/24 10:39 100 MLS/HR Pantoprazole Sodium 40 mg BID IV 08/02/24 10:00 08/03/24 08:54 40 MG Ceftriaxone Sodium 50 ml @ 100 mls/hr DAILY@09 IV 08/02/24 09:00 08/03/24 08:54 100 MLS/HR Metronidazole 100 ml @ 100 mls/hr Q8HR IV 08/01/24 22:00 08/03/24 05:29 100 MLS/HR Sucralfate 1 gm BID@0600,2200 PO 08/01/24 22:00 08/03/24 05:28 1 GM Metoclopramide HCl 10 mg BID PRN IV 08/02/24 15:45 Examination: GENERAL:Normal, HEENT:Normal, NECK:Normal, LUNGS:Normal, CVS:Normal, ABDOMEN:Abnormal, MSK:Normal, SKIN:Normal, NEURO:Normal, :Normal laboratory and microbiology Laboratory Tests 08/03/24 05:47 Test 08/03/24 05:47 Range/Units Serum Glucose 83 74-106 mg/dL Problem List/Assessment/Plan Problem List/Assessment/Plan #Septicemia likely due to gastroenteritis based on WBC 12.3 , Lactic acid 2.3 #upper GI bleeding likely due to erosive gastropathy #Acute epigastric pain secondary to gastropathy? duodenopathy? #Hematemesis - patient is hemodynamically stable - admit to [facility] / [facility] - GI consult pending - pantoprazole 40 mg IV b.i.d. - reglan 10mg BID - Carafate b.i.d. - clear liquid diet - Lactate Ringer's IV - H pylori urea breath test, pending - Chest x-rays - Hepatic panel - cafetriaxone iv - Metronidazole IV - KUB #Nicotine dependency - smoking cessation counseling # Severe constipation - dulcolax 10 mg PO - Miralax po Discussed with Dr. Ca Goals of care discussed with the patient for 36 minutes Code status: Full code Plan discussed with: Patient My Orders My Orders Orders - YESSICA REYES Procedure Category Date Status Time Metoclopramide PHA 08/02/24 In Process Injection (Reglan 15:45 * [facility] [employer] Professor CONS 08/03/24 Transmitted 07:33 Dietary Evaluation Review Comments: Avoid smoking and any recreational drugs or alcohol. consider clear liquid for hydration. Expected Outcomes/Goals: recovered GI function. Date of Service: Aug 03, 2024 Billing Provider: SANDRA CA MD Common Visit Codes: [id number] INP/OBS CARE(HIGH) YESSICA REYES RESIDENT Aug 03, 2024 12:04 SANDRA CA MD Aug 03, 2024 18:13
[2024-08-03] MEDS ORDERED: GASTROGRAFIN 120 ML SOL ONE (13:44)
[2024-08-03] MEDS: METOCLOPRAMIDE HCL 5MG/ml INJ 2ml VIAL IV PRN (14:20)
--- NOTE | 2024-08-03 14:54 | DVH ---
Procedure: XY SMALL BOWEL SERIES-W GASTROGRA Reason for study/Clinical History: rule out obstruction Comparison Study: None available at time of dictation. Technique: Single contrast small bowel series performed. FINDINGS/IMPRESSION: Initial director machine view of the abdomen and pelvis appears demonstrates severe large volume colonic stool b urden. Patient unable to tolerate exam due to vomiting and nausea.
[2024-08-03 17:00] VITALS: BP 119/46; PULSE 87; RESP 16; TEMP 100.5; O2SAT 94
[2024-08-03] MEDS: PANTOPRAZOLE 40 MG TAB PO SCH (17:13)
[2024-08-03] MEDS: ACETAMINOPHEN 325 MG TAB PO PRN (18:07)
[2024-08-03 21:00] VITALS: BP 124/47; PULSE 77; RESP 18; TEMP 98.1; O2SAT 94
[2024-08-03] MEDS ORDERED: LACTULOSE 10g/15ml SOLN 473ML PR ONE (23:15)
[2024-08-04] VITALS (7 sets, daily range): BP systolic 111–135; BP diastolic 59–69; PULSE 61–86; RESP 15–18; TEMP 98.2–100.3; O2SAT 94–97
--- NOTE | 2024-08-04 05:25 | DVH ---
Exam: XY KUB ABDOMEN SINGLE VIEW Indication: FOLLOW UP SMALL BOWEL SERIES Comparison: None Technique: 2 radiographic views of the abdomen. Findings: Large volume colonic stool. Enteric contrast is present in the colon. Nonobstructive bowel gas pattern noted. There is no definite evidence for pneumoperitoneum. No abnormal calcifications noted. Impression: Nonobstructive bowel gas pattern noted. Large volume colonic stool. Enteric contrast is present in the colon.
[2024-08-04 07:54] LABS: Hemoglobin 13.5 g/dL (13.5-17.5); Mean Corpuscular Hemoglobin 30.8 pg (28.0-32.0); Mean Corpuscular Hgb Conc. 34.6 g/dL (32.0-36.0); Mean Corpuscular Volume 89.1 fL (80.0-100.0); Platelet Count (auto) 223 10^3/uL (140-450); Red Blood Cells 4.38 10^6/uL (4.5-5.90); Red Cell Distribution Width 12.5 % (11.8-14.3); White Blood Cell 5.8 10^3/uL (4.4-10.8)
[2024-08-04 08:09] LABS: Band Neutrophils % (manual) 0; Basophils % (manual) 0 (0.0-2.0); Blast Cells 0; Eosinophils % (manual) 0 (0-7); Metamyelocytes % 0; Myelocytes % 0; Promyelocytes % 0; Reactive Lymphocytes 0
[2024-08-04 08:16] LABS: Chloride 104 mmol/L (98-107); Sodium 140 mmol/L (136-145)
[2024-08-04 08:17] LABS: Anion Gap 12 (5-15); Carbon Dioxide 24 mmol/L (20-31)
[2024-08-04 08:18] LABS: Calcium 9.3 mg/dL (8.7-10.4)
[2024-08-04 08:21] LABS: Potassium 3.3 mmol/L (3.5-5.1)
[2024-08-04 08:23] LABS: BUN/Creatinine Ratio 15.3 (10.0-20.0); Blood Urea Nitrogen 13 mg/dL (9-23); Glucose 95 mg/dL (74-106)
[2024-08-04 08:59] LABS: Lymphocytes % (manual) 20 (10.0-50.0); Monocytes % (manual) 8 (0-12); Platelet Estimate Adequate
[2024-08-04] MEDS ORDERED: ONDANSETRON HCL 4 MG/2 ML VIAL IV ONE (11:45)
[2024-08-04] MEDS ORDERED: MIDAZOLAM HCL 2MG/2ML 2ml VIAL (1mg/ml) ONE (11:45)
[2024-08-04] MEDS ORDERED: LIDOCAINE 2% (LOCAL ANESTH.) PF 5ml SDV ONE (11:46)
[2024-08-04] MEDS ORDERED: ONDANSETRON HCL 4 MG/2 ML VIAL ONE (11:46)
[2024-08-04] MEDS ORDERED: PROPOFOL 10 MG/ML 20 ML IV ONE (11:47)
--- NOTE | 2024-08-04 12:04 | DVHOP2 ---
Operative Report DATE OF OPERATION: 08/04/24 PROCEDURE: Upper Endoscopy with biopsy. PREOPERATIVE INDICATION: The patient is a 19 -year-old male undergoing endoscopy for recurrent nausea vomiting and history of upper GI bleed suspected gastritis POSTOPERATIVE DIAGNOSES: 1. 2 cm sliding-type hiatal hernia with slightly irregular squamocolumnar junction minimal grade a erosive esophagitis and GE junction biopsies were obtained 2. Moderate to severe gastropathy involving the proximal stomach likely related to nausea vomiting 3. Bhux-im-iwmtnzku gastroduodenitis with superficial erosions and flecks of old blood otherwise normal examination up to the 3rd part of the duodenum PROCEDURE PERFORMED BY: Vanita Fagan GI NURSE: Rita SCOPE: Olympus videoendoscope. ASA CLASS: 2. PREOPERATIVE MEDICATIONS: Dr. Estephanie Pardo PROCEDURE IN DETAIL: After obtaining an informed consent, the patient was placed on left lateral decubitus position. The patient was then sedated with the above medications. A bite block was placed between her teeth. The endoscope was then passed through the oropharynx, into the esophagus, and through the stomach and pylorus up to the second and third part of the duodenum. The endoscope was then withdrawn. The 2nd and 3rd part of the duodenal were normal the duodenal bulb showed duodenitis with superficial erosions The pre-pyloric area and antrum showed agph-vx-vxloaczq gastritis with some hyperemia erythema and flecks of old blood On retroflexion the patient had poavwzee-rv-fwwhhk gastropathy involving the proximal stomach in the cardia likely related to frequent retching Duodenal, gastric antral and proximal gastric biopsies were obtained. The endoscope was then withdrawn into the distal esophagus. Patient had a 1-2 cm sliding-type hiatal hernia with slightly irregular squamocolumnar junction minimal grade a erosive esophagitis. GE junction biopsies were obtained. The remaining distal and proximal esophagus and oropharynx were unremarkable The patient tolerated the procedure well without difficulty. COMPLICATIONS : None SPECIMENS: Duodenal biopsies Gastric biopsies GE junction biopsies DISPOSITION: Transfer back to the floor Stable PLAN: 1. Await for biopsy result 2. Will place pt on Protonix 40 mg bid 3. Carafate 1 g p.o. twice a day 4. DC aspirin NSAIDs smoking alcohol 5. Resume full liquid diet advance as tolerated 6. Outpatient follow up with me in 4-6 weeks to review results and discuss further management VANITA FAGAN MD Aug 04, 2024 12:04
[2024-08-04] MEDS: POTASSIUM EFFERVESENT TAB 25 MEQ PO ONE (13:07)
[2024-08-04] MEDS: BISACODYL 10 MG RECT SUPP PR ONE (17:33)
[2024-08-04 18:08] LABS: COVID19 ANTIGEN SOFIA FIA NEGATIVE (NEGATIVE)
[2024-08-04 18:18] LABS: Rapid Influenza B Negative (Negative)
[2024-08-04 18:21] LABS: Rapid Influenza A Positive (Negative)
--- NOTE | 2024-08-04 19:05 | DVHPNRES ---
Progress Note Date Seen: Aug 04, 2024 Resident Creating Document: YESSICA REYES RESIDENT Medical Necessity Reason Pt with a Central, PICC or Fol: No Subjective Review of Systems 19-year-old male patient with history of gastritis and clavicle fracture in 2019, presented with the acute epigastric abdominal pain and hematemesis. The pain is described as severe, burning quality and rated as 9/10 intensity. The patient reports similar episodes 3 days ago and a history of recurrent gastritis symptoms over the past 7 months he reports not having appetite when this abdominal pain develops, he feels the food will make the pain worse. Previously he manage his condition with Pepcid and Zofran at home, but this time he presented to the hospital due to associated vomiting of moderate amount of bright red blood and history of dark stools. Patient was examined at bedside, he reports still having some nausea, patient was not for endoscopy today, reports showed 2 cm sliding-type hiatal hernia with slightly irregular squamocolumnar junction minimal grade a erosive esophagitis and GE junction ,moderate to severe gastropathy involving the proximal stomach likely related to nausea vomiting and vigk-yy-irigvhlq gastroduodenitis with superficial erosions and flecks of old blood otherwise normal examination up to the 3rd part of the duodenum. At this point we will resume full liquid diet advance as tolerated, patient was advised to follow up with Dr. Fagan in 4-6 weeks to review results and discuss further management. Patient's influenza test came back positive for which the patient was started on oseltamivir 75 mg p.o. b.i.d. Patient reports: Feels better Changes from previous H/P or p: Changes Objective vital signs Vital Sign Date Time Temp Pulse Resp B/P (MAP) Pulse Ox O2 Delivery O2 Flow Rate FiO2 08/04/24 17:37 98.7 86 18 117/62 (80) 97 98.7 08/04/24 12:10 Nasal Cannula 2.0 08/04/24 12:10 97 Total Intake and Output 08/03/24 08/03/24 08/04/24 15:00 23:00 07:00 Intake Total 50 ml 495 ml 200 ml Balance 50 ml 495 ml 200 ml medications Current Medications Medications Dose Ordered Sig/Brooke Route Start Time Stop Time Status Last Admin Dose Admin Acetaminophen 650 mg Q6HP PRN PO 08/01/24 16:30 08/04/24 13:07 650 MG Nitroglycerin 0.4 mg Q5MINP PRN SL 08/01/24 16:30 Lactated Ringer's 1,000 ml @ 100 mls/hr Q10H IV 08/01/24 17:15 08/04/24 15:15 100 MLS/HR Ceftriaxone Sodium 50 ml @ 100 mls/hr DAILY@09 IV 08/02/24 09:00 08/04/24 13:06 100 MLS/HR Metronidazole 100 ml @ 100 mls/hr Q8HR IV 08/01/24 22:00 08/04/24 14:22 100 MLS/HR Sucralfate 1 gm BID@0600,2200 PO 08/01/24 22:00 08/03/24 22:14 1 GM Metoclopramide HCl 10 mg BID PRN IV 08/02/24 15:45 08/03/24 14:20 10 MG Pantoprazole Sodium 40 mg BID@0600,1700 PO 08/03/24 17:00 08/04/24 17:33 40 MG Examination Examination General Appearance: Alert, Oriented X3, Cooperative, No acute distress Respiratory: Clear to auscultation, Normal air movement Cardiovascular: Regular rate, Normal S1, Normal S2 Abdominal: Increased bowel sounds, abdomen mildly distended, nontender on palpation Extremities: No cyanosis, No edema, Normal pulses, No tenderness/swelling Skin: No rashes, No breakdown Neuro: Normal gait, Normal speech, Strength at 5/5 X4 ext, Normal tone, Sensation intact laboratory and microbiology Laboratory Tests 08/04/24 07:32 Test 08/04/24 07:32 Range/Units Serum Glucose 95 74-106 mg/dL Problem List/Assessment/Plan Problem List/Assessment/Plan #Septicemia likely due to gastroenteritis based on WBC 12.3 , Lactic acid 2.3 #upper GI bleeding likely due to erosive gastropathy #Acute epigastric pain secondary to moderate to severe gastropathy involving the proximal stomach likely related to nausea vomiting #Bdtr-wd-yexkdmqb gastroduodenitis - patient is hemodynamically stable - pantoprazole 40 mg IV b.i.d. - Carafate b.i.d. - H pylori urea breath test, pending #Upper respiratory infection due to Influenza type A -oseltamivir 75 mg p.o. b.i.d. #Nicotine dependency - smoking cessation counseling # Severe constipation # nausea and vomiting - dulcolax suppository - Miralax po # polysubstance abuse -drug abuse cessation counseling Discussed with Dr. Ca Goals of care discussed with the patient for 36 minutes Code status: Full code Plan discussed with: Patient, Other (Girlfriend) Dietary Evaluation Review Comments: Avoid smoking and any recreational drugs or alcohol. consider clear liquid for hydration. Expected Outcomes/Goals: recovered GI function. Date of Service: Aug 04, 2024 Billing Provider: SANDRA CA MD Common Visit Codes: [id number] INP/OBS CARE(HIGH) YESSICA REYES RESIDENT Aug 04, 2024 19:05 SANDRA CA MD Aug 05, 2024 10:31
[2024-08-04] MEDS: OSELTAMIVIR 75 MG CAP PO SCH (21:40)
[2024-08-05 01:00] VITALS: BP 120/56; PULSE 62; RESP 17; TEMP 98.7; O2SAT 94
[2024-08-05 05:00] VITALS: BP 136/73; PULSE 49; RESP 16; TEMP 98.1; O2SAT 91
[2024-08-05 07:01] LABS: Chloride 104 mmol/L (98-107); Potassium 4.1 mmol/L (3.5-5.1); Sodium 139 mmol/L (136-145)
[2024-08-05 07:02] LABS: Anion Gap 6 (5-15); Carbon Dioxide 29 mmol/L (20-31)
[2024-08-05 07:03] LABS: Calcium 9.1 mg/dL (8.7-10.4)
[2024-08-05 07:07] LABS: BUN/Creatinine Ratio 15.4 (10.0-20.0); Blood Urea Nitrogen 12 mg/dL (9-23); Glucose 84 mg/dL (74-106)
[2024-08-05 09:00] VITALS: BP 137/60; PULSE 57; RESP 19; TEMP 100.3; O2SAT 90
[2024-08-05 13:00] VITALS: BP 122/52; PULSE 86; RESP 18; TEMP 99.2; O2SAT 91
--- NOTE | 2024-08-05 14:33 | DVHPNRES ---
Progress Note Date Seen: Aug 05, 2024 Resident Creating Document: YESSICA REYES RESIDENT Medical Necessity Reason Pt with a Central, PICC or Fol: No Subjective Review of Systems 19-year-old male patient with history of gastritis and clavicle fracture in 2019, presented with the acute epigastric abdominal pain and hematemesis. The pain is described as severe, burning quality and rated as 9/10 intensity. The patient reports similar episodes 3 days ago and a history of recurrent gastritis symptoms over the past 7 months he reports not having appetite when this abdominal pain develops, he feels the food will make the pain worse. Previously he manage his condition with Pepcid and Zofran at home, but this time he presented to the hospital due to associated vomiting of moderate amount of bright red blood and history of dark stools. Patient was examined at bedside, he reports still having some nausea, there were some peaks of fever last night and low heart rate. chest X ray chest/abdomen were obtained. Endoscopy result: -2 cm sliding-type hiatal hernia with slightly irregular squamocolumnar junction minimal grade a erosive esophagitis and GE junction ,moderate to severe gastropathy involving the proximal stomach likely related to nausea vomiting and sadd-qi-gpytnobp gastroduodenitis with superficial erosions and flecks of old blood otherwise normal examination up to the 3rd part of the duodenum. Patient was advised to follow up with Dr. Fagan in 4-6 weeks to review results and discuss further management. Mechanical soft diet. Patient's influenza test came back positive for which the patient was started on oseltamivir 75 mg p.o. b.i.d. Patient reports: Feels better Changes from previous H/P or p: Changes Objective vital signs Vital Sign Date Time Temp Pulse Resp B/P (MAP) Pulse Ox O2 Delivery O2 Flow Rate FiO2 08/05/24 13:00 99.2 86 18 122/52 (75) 91 99.2 08/05/24 08:00 Room Air* 0 21 Total Intake and Output 08/04/24 08/04/24 08/05/24 15:00 23:00 07:00 Intake Total 150 ml 850 ml 450 ml Balance 150 ml 850 ml 450 ml medications Current Medications Medications Dose Ordered Sig/Brooke Route Start Time Stop Time Status Last Admin Dose Admin Acetaminophen 650 mg Q6HP PRN PO 08/01/24 16:30 08/04/24 21:40 650 MG Nitroglycerin 0.4 mg Q5MINP PRN SL 08/01/24 16:30 Lactated Ringer's 1,000 ml @ 100 mls/hr Q10H IV 08/01/24 17:15 08/05/24 01:15 100 MLS/HR Ceftriaxone Sodium 50 ml @ 100 mls/hr DAILY@09 IV 08/02/24 09:00 08/05/24 10:37 100 MLS/HR Metronidazole 100 ml @ 100 mls/hr Q8HR IV 08/01/24 22:00 08/05/24 06:33 100 MLS/HR Sucralfate 1 gm BID@0600,2200 PO 08/01/24 22:00 08/05/24 06:32 1 GM Metoclopramide HCl 10 mg BID PRN IV 08/02/24 15:45 08/03/24 14:20 10 MG Pantoprazole Sodium 40 mg BID@0600,1700 PO 08/03/24 17:00 08/05/24 06:00 40 MG Oseltamivir Phosphate 75 mg Q12H PO 08/04/24 20:00 08/09/24 08:01 08/05/24 10:38 75 MG Examination Examination General Appearance: Alert, Oriented X3, Cooperative, No acute distress Respiratory: Rales bilaterally, no increased work of breathing Cardiovascular: Bradycardia, Normal S1, Normal S2 Abdominal: Normal bowel sounds Extremities: No cyanosis, No edema, Normal pulses, No tenderness/swelling Skin: No rashes, No breakdown Neuro: Normal gait, Normal speech, Strength at 5/5 X4 ext, Normal tone, Sensation intact laboratory and microbiology Laboratory Tests 08/05/24 06:31 08/04/24 07:32 Test 08/05/24 06:31 Range/Units Serum Glucose 84 74-106 mg/dL Problem List/Assessment/Plan Problem List/Assessment/Plan #Septicemia likely due to gastroenteritis based on WBC 12.3 , Lactic acid 2.3 #upper GI bleeding likely due to erosive gastropathy #Acute epigastric pain secondary to moderate to severe gastropathy involving the proximal stomach likely related to nausea vomiting #Tlon-dg-iofegzsh gastroduodenitis - patient is hemodynamically stable - pantoprazole 40 mg IV b.i.d. - Carafate b.i.d. - H pylori urea breath test, pending #Upper respiratory infection due to Influenza type A -oseltamivir 75 mg p.o. b.i.d. -chest x-rays #Nicotine dependency - smoking cessation counseling # Severe opioid induced constipation # nausea and vomiting - dulcolax suppository - Miralax po -abdominal x-rays # polysubstance abuse -drug abuse cessation counseling Discussed with Dr. Ca Goals of care discussed with the patient for 36 minutes Code status: Full code Plan discussed with: Patient, Other (Girlfriend) My Orders My Orders Orders - YESSICA REYES RESIDENT Procedure Category Date Status Time Oseltamivir 75mg PHA 08/04/24 In Process Capsule (Tamiflu 75mg 20:00 Chest Portable XY 08/05/24 Logged 11:21 Kub Abdomen Single XY 08/05/24 Logged View 11:21 Dietary Evaluation Review Comments: Avoid smoking and any recreational drugs or alcohol. consider clear liquid for hydration. Expected Outcomes/Goals: recovered GI function. Date of Service: Aug 05, 2024 Billing Provider: SANDRA CA MD Common Visit Codes: [id number] INP/OBS CARE(HIGH) YESSICA REYES RESIDENT Aug 05, 2024 14:33 SANDRA CA MD Aug 06, 2024 10:19
[2024-08-05] MEDS ORDERED: OSEL75CA17 PO (16:13)
--- NOTE | 2024-08-05 16:23 | DVH ---
CHEST RADIOGRAPH Indication: PNA Technique: Single frontal view of the chest was obtained COMPARISON: XY CHEST PORTABLE on DOS: 08/01/24, CHEST PORTABLE on DOS: 06/17/21 FINDINGS: Lines and Tubes: None Lungs: Clear Pleura: No effusion. No pneumothorax. Cardiomediastinal contours: Unremarkable Bones: Unremarkable IMPRESSION: No acute disease.
[2024-08-05] MEDS ORDERED: POLY335015 PO (16:27)
--- NOTE | 2024-08-05 16:37 | DVH ---
Date: 08/05/2024 04:00 PM Examination: XY KUB ABDOMEN SINGLE VIEW History: severe constipation Comparison: XY KUB ABDOMEN SINGLE VIEW on DOS: 08/04/24 TECHNIQUE: Frontal views of the abdomen was obtained. FINDINGS: Bowel gas pattern is unremarkable. Stool noted throughout the colon. Oral contrast noted in the distal right transverse and proximal left colon The lung bases are unremarkable. No acute osseous abnormality identified. IMPRESSION: 1. Nonobstructive bowel gas pattern. 2. Stool throughout the colon.
--- NOTE | 2024-08-05 16:46 | DVHDSRES ---
Discharge Summary Date of Admission Resident Creating Document: YESSICA REYES RESIDENT Aug 01, 2024 at 16:27 Date of Discharge: Aug 05, 2024 Admitting Diagnosis Acute upper GI bleeding likely due to peptic ulcer disease Labs/Diagnostic Data: Laboratory Results Test 08/05/24 06:31 08/04/24 15:45 08/04/24 07:32 08/03/24 22:00 Sodium Level 139 mmol/L (136-145) Potassium Level 4.1 mmol/L (3.5-5.1) Chloride Level 104 mmol/L (98-107) Carbon Dioxide Level 29 mmol/L (20-31) Anion Gap 6 (5-15) Blood Urea Nitrogen 12 mg/dL (9-23) Creatinine 0.78 mg/dL (0.700-1.30) Glomerular Filtration Rate Calc 130 mL/min (>90) BUN/Creatinine Ratio 15.4 (10.0-20.0) Serum Glucose 84 mg/dL (74-106) Calcium Level 9.1 mg/dL (8.7-10.4) Influenza Type A Antigen Positive (Negative) Influenza Type B Antigen Negative (Negative) SARS-CoV-2 Antigen (Rapid) Negative (NEGATIVE) White Blood Count 5.8 10^3/uL (4.4-10.8) Red Blood Count 4.38 10^6/uL (4.5-5.90) Hemoglobin 13.5 g/dL (13.5-17.5) Hematocrit 39.0 % (41.0-53.0) Mean Corpuscular Volume 89.1 fL (80.0-100.0) Mean Corpuscular Hemoglobin 30.8 pg (28.0-32.0) Mean Corpuscular Hemoglobin Concent 34.6 g/dL (32.0-36.0) Red Cell Distribution Width 12.5 % (11.8-14.3) Platelet Count 223 10^3/uL (140-450) Mean Platelet Volume 8.3 fL (6.9-10.8) Neutrophils (%) (Auto) % (37.0-80.0) Lymphocytes (%) (Auto) % (10.0-50.0) Monocytes (%) (Auto) % (0.0-12.0) Basophils (%) (Auto) % (0.0-2.0) Neutrophils # (Auto) 10 ^3/uL (1.6-8.6) Lymphocytes # (Auto) 10 ^3/uL (0.4-5.4) Monocytes # (Auto) 10 ^3/uL (0-1.3) Differential Total Cells Counted 100.0 (100) Neutrophils % (Manual) 72 (37.0-80.0) Band Neutrophils % (Manual) 0 Lymphocytes % (Manual) 20 (10.0-50.0) Monocytes % (Manual) 8 (0-12) Eosinophils % (Manual) 0 (0-7) Basophils % (Manual) 0 (0.0-2.0) Metamyelocytes % (manual) 0 Myelocytes % (Manual) 0 Promyelocytes % (Manual) 0 Blast Cells % (Manual) 0 Reactive Lymphocytes 0 Platelet Estimate Adequate Stool Occult Blood Negative (Negative) Stool Occult Blood Sample #3 (Negative) Test 08/03/24 05:47 08/02/24 10:55 08/02/24 10:30 08/02/24 07:28 Eosinophils (%) (Auto) 0.3 % (0.0-7.0) Eosinophils # (Auto) 0 10 ^3/uL (0-0.8) Basophils # (Auto) 0 10 ^3/uL (0-0.2) Nucleated Red Blood Cells 0.0 % H. pylori C Urea Breath Test Negative (Negative) Urine Color Light-orange (Yellow) Urine Clarity Ex.turbid (Clear) Urine pH 5.5 (5.0-9.0) Urine Specific [place] 1.043 (1.001-1.035) Urine Protein 1+ (Negative) Urine Ketones 1+ (Negative) Urine Blood Negative /uL (Negative) Urine Nitrite Negative (Negative) Urine Bilirubin Negative (Negative) Urine Urobilinogen Normal mg/dL (Negative) Urine Leukocyte Esterase Negative /uL (Negative) Urine RBC None seen /hpf (0 - 3) Urine WBC 5 /hpf (0 - 3) Urine Squamous Epithelial Cells Few /hpf (<5) Urine Bacteria Few /hpf (None Seen) Urine Mucus Few (None Seen) Urine Glucose Normal mg/dL (Normal) Urine Opiates Screen Pos (NEGATIVE) Urine Fentanyl Screen Pos (NEGATIVE) Urine Barbiturates Screen Neg (NEGATIVE) Urine Phencyclidine Screen Neg (NEGATIVE) Urine Amphetamines Screen Neg (NEGATIVE) Urine Benzodiazepines Screen Neg (NEGATIVE) Urine Cocaine Screen Neg (NEGATIVE) Urine Cannabinoids Screen Neg (NEGATIVE) Total Bilirubin 0.3 mg/dL (0.2-1.0) Aspartate Amino Transferase (AST) 13 U/L (13-40) Alanine Aminotransferase (ALT) 18 U/L (7-40) Alkaline Phosphatase 71 U/L (46-116) Total Protein 6.5 g/dL (5.7-8.2) Albumin 4.1 g/dL (3.2-4.8) Test 08/02/24 00:18 08/01/24 19:15 08/01/24 17:19 08/01/24 14:34 Lactic Acid Level 1.7 mmol/L (0.4-2.0) Direct Bilirubin 0.1 mg/dL (<0.3) Plasma/Serum Blood Alcohol 5.2 mg/dL (<10) Prothrombin Time 12.4 sec (9.3-11.8) Prothrombin Time INR 1.18 (0.9-1.15) Hemoglobin A1c 5.1 % A1C (<5.7) Vitamin B12 Level 541 pg/mL (211-911) Folic Acid 19.86 ng/mL (>5.38) Thyroid Stimulating Hormone (TSH) 0.49 uIU/mL (0.55-4.78) Other Laboratory Tests 08/05/24 06:31 08/04/24 07:32 Brief Hx & Hospital Course: HPI: 19-year-old male patient with history of gastritis and clavicle fracture in 2019 who presented to the hospital with the acute epigastric abdominal pain rated as 9/10 intensity accompanied by episodes of hematemesis. Over the past 7 months the patient experienced recurrent gastritis symptoms and lack of appetite but manage symptoms at home with Pepcid and Zofran. This episode was more severe including bright red blood in stool and dark stools. The patient also reported some nausea fever peaks and low heart rate prior to admission. Hospital course: Patient underwent endoscopy that showed 2 cm sliding-type hiatal hernia with irregular squamocolumnar junction, and minimal grade a erosive esophagitis and superficial erosions with a flex of old blood up to the 3rd part of the duodenum, influenza test was positive for which the patient was started on oseltamivir 75 mg p.o. b.i.d.. The patient is improving his symptoms, he was advised to follow-up with Dr. Fagan in 4-6 weeks to review and plan further management. There was no reports of any recurrence of bright red blood stools or severe abdominal pain or bright red blood vomiting on discharge. Condition at discharge: Patient reported feeling better with resolution of acute symptoms, stable vital signs upon discharge, discharge to home. Case discussed with Dr. Jarvis Goals of care discussed with the patient for 37 minutes Code status: Full code Consults/Reason for consult GI: upper gi bleeding Operations or Procedures [place] [id number] Ph: [phone] DIAGNOSTIC IMAGING Diagnostic Imaging Report : [id number] Signed PATIENT: GABRIEL STEWART ACCT: [id number] UNIT: [id number] : 2005 LOC: OVERFLOW ROOM / BED: 1009-ER / A AGE / SEX: 19 / M ADM STATUS: ADM IN SERVICE 9014 ORDERING PHYSICIAN: VÍCTOR GONZALEZ MD PROCEDURE(s): ABPL - CT AB PEL WO CON-NO ORAL OR IV REASON: colitis ORDER NUMBER(s): [id number], ACCESSION NUMBER(s): [id number] CT ABDOMEN AND PELVIS WITHOUT CONTRAST CLINICAL HISTORY: colitis TECHNIQUE: Multiple contiguous axial images of the abdomen and pelvis without intravenous contrast. The images were reformatted degenerate coronal and sagittal reconstructions. All CT scans at this medical facility are performed using dose modulation techniques as appropriate to a performed exam including the following:Automated exposure control was utilized; adjustment of the MA and/or KV according to patient size; and use of iterative reconstruction technique. Radiation Dose Information: CT Dose: CTDI volume is 12 mGy. Dose-length product is 727 mGy*cm Comparison: None FINDINGS: Evaluation of the abdomen and pelvis is limited without intravenous contrast. The liver, gallbladder, pancreas, kidneys, adrenal glands, and spleen appear within normal limits. There is no gross evidence of abdominal lymphadenopathy. There is no free fluid or free air. The stomach grossly appears unremarkable. The small and large bowel loops demonstrate normal caliber. There is large amount of stool throughout the colon. The appendix is not seen. There are no secondary signs of acute appendicitis. The abdominal aorta and IVC appear within normal limits. The bladder appears unremarkable for the degree of distention. Pelvic organ appears within normal limits. There is no gross evidence of a pelvic mass. There is no free fluid collection. Lung bases are clear. There is no acute osseous abnormality. IMPRESSION: 1. There is no acute process in the abdomen and pelvis. 2. Large amount of stool throughout the colon. HS:Y ATED BY: SULAIMAN FOX MD DICTATED DATE/TIME: 08/01/241648 SIGNED BY: SULAIMAN FOX MD SIGNED DATE/TIME: 08/01/241648 CC: [place] [id number] Ph: [phone] DIAGNOSTIC IMAGING Diagnostic Imaging Report : [id number] Signed PATIENT: GABRIEL STEWART ACCT: [id number] UNIT: [id number] : 2005 LOC: [facility] ROOM / BED: [address] [place] [address] / AGE / SEX: 19 / M ADM STATUS: ADM IN SERVICE 01 ORDERING PHYSICIAN: YESSICA REYES PROCEDURE(s): CXRP - CHEST PORTABLE REASON: rule out PNA ORDER NUMBER(s): [id number], ACCESSION NUMBER(s): [id number] CHEST RADIOGRAPH Indication: rule out PNA Technique: Single frontal view of the chest was obtained Comparison: CHEST PORTABLE on DOS: 06/17/21 FINDINGS: Lines and Tubes: None Lungs: No focal consolidation. Pleura: No effusion. No pneumothorax. Cardiomediastinal contours: Unremarkable Bones: No acute osseous abnormality. IMPRESSION: No acute cardiopulmonary disease. ATED BY: DEANA RATLIFF DO DICTATED DATE/TIME: 08/01/241821 SIGNED BY: DEANA RATLIFF DO SIGNED DATE/TIME: 08/01/241821 CC: [place] [id number] Ph: [phone] DIAGNOSTIC IMAGING Diagnostic Imaging Report : [id number] Signed PATIENT: GABRIEL STEWART ACCT: [id number] UNIT: [id number] : 2005 LOC: E[facility] ROOM / BED: [address] [place] [address] AGE / SEX: 19 / M ADM STATUS: ADM IN SERVICE 1302 ORDERING PHYSICIAN: YESSICA REYES PROCEDURE(s): SMBG - SMALL BOWEL SERIES-W GASTROGRA REASON: rule out obstruction ORDER NUMBER(s): [id number], ACCESSION NUMBER(s): [id number] Procedure: XY SMALL BOWEL SERIES-W GASTROGRA Reason for study/Clinical History: rule out obstruction Comparison Study: None available at time of dictation. Technique: Single contrast small bowel series performed. FINDINGS/IMPRESSION: Initial box spring upholsterer view of the abdomen and pelvis appears demonstrates severe large volume colonic stool burden. Patient unable to tolerate exam due to vomiting and nausea. ATED BY: MAICO MACDONALD MD DICTATED DATE/TIME: 08/03/241450 SIGNED BY: MAICO MACDONALD MD SIGNED DATE/TIME: 08/03/241450 CC: [place] [id number] Ph: [phone] DIAGNOSTIC IMAGING Diagnostic Imaging Report : [id number] Signed PATIENT: GABRIEL STEWART ACCT: [id number] UNIT: [id number] : 2005 LOC: [facility] / BED: [address] [place] [address] AGE / SEX: 19 / M ADM STATUS: ADM IN SERVICE 0400 ORDERING PHYSICIAN: YESSICA REYES PROCEDURE(s): KUB - KUB ABDOMEN SINGLE VIEW REASON: FOLLOW UP SMALL BOWEL SERIES ORDER NUMBER(s): [id number], ACCESSION NUMBER(s): [id number] Exam: XY KUB ABDOMEN SINGLE VIEW Indication: FOLLOW UP SMALL BOWEL SERIES Comparison: None Technique: 2 radiographic views of the abdomen. Findings: Large volume colonic stool. Enteric contrast is present in the colon. Nonobstructive bowel gas pattern noted. There is no definite evidence for pneumoperitoneum. No abnormal calcifications noted. Impression: Nonobstructive bowel gas pattern noted. Large volume colonic stool. Enteric contrast is present in the colon. ATED BY: MAICO MACDONALD MD DICTATED DATE/TIME: 08/04/24519 SIGNED BY: MAICO MACDONALD MD SIGNED DATE/TIME: 08/04/24519 CC: [place] [id number] Ph: [phone] DIAGNOSTIC IMAGING Diagnostic Imaging Report : [id number] Signed PATIENT: GABRIEL STEWART ACCT: [id number] UNIT: [id number] : 2005 LOC: [facility] ROOM / BED: [address] [place] [address] AGE / SEX: 19 / M ADM STATUS: ADM IN SERVICE 112 ORDERING PHYSICIAN: YESSICA REYES PROCEDURE(s): CXRP - CHEST PORTABLE REASON: PNA ORDER NUMBER(s): [id number], ACCESSION NUMBER(s): [id number] CHEST RADIOGRAPH Indication: PNA Technique: Single frontal view of the chest was obtained COMPARISON: XY CHEST PORTABLE on DOS: 08/01/24, CHEST PORTABLE on DOS: 06/17/21 FINDINGS: Lines and Tubes: None Lungs: Clear Pleura: No effusion. No pneumothorax. Cardiomediastinal contours: Unremarkable Bones: Unremarkable IMPRESSION: No acute disease. ATED BY: MAICO MACDONALD MD DICTATED DATE/TIME: 08/05/241618 SIGNED BY: MAICO MACDONALD MD SIGNED DATE/TIME: 08/05/241618 CC: [place] [id number] Ph: [phone] DIAGNOSTIC IMAGING Diagnostic Imaging Report : [id number] Signed PATIENT: GABRIEL STEWART ACCT: [id number] UNIT: [id number] : 2005 LOC: EAST ROOM / BED: [address] [place] [address] AGE / SEX: 19 / M ADM STATUS: ADM IN SERVICE 112 ORDERING PHYSICIAN: YESSICA REYES PROCEDURE(s): KUB - KUB ABDOMEN SINGLE VIEW REASON: severe constipation ORDER NUMBER(s): [id number], ACCESSION NUMBER(s): [id number] Date: 08/05/2024 04:00 PM Examination: XY KUB ABDOMEN SINGLE VIEW History: severe constipation Comparison: XY KUB ABDOMEN SINGLE VIEW on DOS: 08/04/24 TECHNIQUE: Frontal views of the abdomen was obtained. FINDINGS: Bowel gas pattern is unremarkable. Stool noted throughout the colon. Oral contrast noted in the distal right transverse and proximal left colon The lung bases are unremarkable. No acute osseous abnormality identified. IMPRESSION: 1. Nonobstructive bowel gas pattern. 2. Stool throughout the colon. ATED BY: GAYATHRI WHITEHEAD Jr., DO DICTATED DATE/TIME: 08/05/24 163 SIGNED BY: GAYATHRI WHITEHEAD Jr., SIGNED DATE/TIME: 08/05/24 163 CC: Condition at Discharge: Fair Final Diagnosis/Problems List #Septicemia likely due to gastroenteritis based on WBC 12.3 , Lactic acid 2.3 #upper GI bleeding likely due to erosive gastropathy #Acute epigastric pain secondary to moderate to severe gastropathy involving the proximal stomach likely related to nausea vomiting #[id number] gastroduodenitis #Upper respiratory infection due to Influenza type A #Nicotine dependency # Severe constipation # nausea and vomiting # polysubstance abuse Discharge Disposition: Home SNF Discharge Will this Physician continue t: No Discharge Instruct/Medications Diet: Cardiac 2g Na,low cholest Activity: No Restrictions, As Tolerated Follow Up/Referral: follow up with GI for endoscopy follow up with PCP within 1 to 2 weeks Medications: pantoprazole 40 mg bid carafate 1 gm bid oseltamivir Discharge Statement: "Patient was advised to return to the ER or call 911 if any headaches, dizziness, shortness of breath, chest pain, abdominal pain, bleeding, fevers, or worsening of medical condition. Patient was counseled about treatment plan, medications, possible side effects, patientverbalized understanding. All questions were answered to the best of my ability. This discharge took greater then 30 minutes in planning, reviewing documentation, counseling the patient, and discussing with other team members." ASSESSMENT ASSESSMENT Assessment upper GI bleeding likely erosive gastropathy drug abuse( extasis) viral pneumonia Date of Service: Aug 05, 2024 Billing Provider: SANDRA JARVIS MD Common Visit Codes: 72651-VYC/OBS DISCH DAY >30min YESSICA REYES RESIDENT Aug 05, 2024 16:46 SANDRA JARVIS MD Aug 06, 2024 10:24
[2024-08-05 16:55] VITALS: BP 128/54; PULSE 54; RESP 18; TEMP 98.5; O2SAT 90
[2024-08-05] MEDS ORDERED: OSELTAMIVIR 75 MG CAP PO ONE (18:00)
[2024-08-05 19:18] VITALS: TEMP 36.9
--- NOTE | 2024-08-05 20:20 | DVHPN2 ---
Progress Note - Dictate Date Seen: Aug 05, 2024 (Late entryPatient seen at 8:00 a.m.) Medical Necessity Reason Pt with a Central, PICC or Fol: No Subjective No new complaints Patient was diagnosed with influenza A Patient is an anxious about his endoscopy findings which were discussed with the patient He had a small hiatal hernia with mild GERD He also had gastritis and gastropathy vital signs Vital Sign Date Time Temp Pulse Resp B/P (MAP) Pulse Ox O2 Delivery O2 Flow Rate FiO2 08/05/24 20:00 Room Air* 0 21 08/05/24 19:18 36.9 08/05/24 16:55 54 18 128/54 (78) 90 Total Intake and Output 08/04/24 08/04/24 08/05/24 15:00 23:00 07:00 Intake Total 150 ml 850 ml 450 ml Balance 150 ml 850 ml 450 ml medications Current Medications Medications Dose Ordered Sig/Brooke Route Start Time Stop Time Status Last Admin Dose Admin Acetaminophen 650 mg Q6HP PRN PO 08/01/24 16:30 08/04/24 21:40 650 MG Nitroglycerin 0.4 mg Q5MINP PRN SL 08/01/24 16:30 Lactated Ringer's 1,000 ml @ 100 mls/hr Q10H IV 08/01/24 17:15 08/05/24 11:15 100 MLS/HR Ceftriaxone Sodium 50 ml @ 100 mls/hr DAILY@09 IV 08/02/24 09:00 08/05/24 10:37 100 MLS/HR Metronidazole 100 ml @ 100 mls/hr Q8HR IV 08/01/24 22:00 08/05/24 06:33 100 MLS/HR Sucralfate 1 gm BID@0600,2200 PO 08/01/24 22:00 08/05/24 06:32 1 GM Metoclopramide HCl 10 mg BID PRN IV 08/02/24 15:45 08/03/24 14:20 10 MG Pantoprazole Sodium 40 mg BID@0600,1700 PO 08/03/24 17:00 08/05/24 18:13 40 MG Oseltamivir Phosphate 75 mg Q12HR PO 08/05/24 22:00 08/09/24 10:01 objective General Appearance: Alert, Oriented X3, Cooperative, no distress Respiratory: Clear to auscultation, Normal air movement Cardiovascular: Regular rate, Normal S1, Normal S2 Abdominal: Normal bowel sounds Extremities: No cyanosis, No edema, Normal pulses, No tenderness/swelling Skin: No rashes, No breakdown Neuro: Normal gait, Normal speech, nonfocal Psych/Mental Status: Mental status NL, Mood NL laboratory and microbiology Laboratory Tests 08/05/24 06:31 08/04/24 07:32 Test 08/05/24 06:31 Range/Units Serum Glucose 84 74-106 mg/dL Problems(with codes): (1) Hiatal hernia with gastroesophageal reflux disease and esophagitis (2) Influenza A (3) Epigastric pain (4) Gastritis (5) Acute abdominal pain Prognosis Plan Continue conservative treatment Patient has been counseled about discontinuing alcohol and smoking and avoiding NSAIDs Protonix 40 mg p.o. twice a day Carafate 1 g p.o. twice a day Outpatient follow up with me in 6-8 weeks or as needed I will follow up patient with you Discharge planning as per hospitalist Dietary Evaluation Review Comments: Avoid smoking and any recreational drugs or alcohol. consider clear liquid for hydration. Expected Outcomes/Goals: recovered GI function. Plan discussed with: Patient, Other (Dr Fleming) VANITA LOWERY MD Aug 05, 2024 20:19
[2024-08-05] MEDS ORDERED: OSELTAMIVIR 75 MG CAP PO SCH (22:00)
[2024-08-06] MEDS ORDERED: OSELTAMIVIR 75 MG CAP PO SCH (10:00)
== END 2024-08-05 20:45 | disposition home or self-care (01) | DRG 872 ==
LOC: ER 14:17 → EDBD 14:17 → OVERFLOW 16:27 → EAST 08-02 02:12
PROVIDERS: ADMIT Internal Medicine; ATTEND Internal Medicine
PROC: 0DB78ZX Excision of Stomach, Pylorus, Via Natural or Artificial Opening Endoscopic, Diagnostic (ICD-10-PCS; 2024-08-04)
PROC: 0DB68ZX Excision of Stomach, Via Natural or Artificial Opening Endoscopic, Diagnostic (ICD-10-PCS; 2024-08-04)
PROC: 0DB48ZX Excision of Esophagogastric Junction, Via Natural or Artificial Opening Endoscopic, Diagnostic (ICD-10-PCS; 2024-08-04)
PROC: 0DB98ZX Excision of Duodenum, Via Natural or Artificial Opening Endoscopic, Diagnostic (ICD-10-PCS; principal; 2024-08-04 11:44)
DX: A41.9 Sepsis, unspecified organism (principal); E87.20 Acidosis, unspecified; K22.10 Ulcer of esophagus without bleeding; F17.210 Nicotine dependence, cigarettes, uncomplicated; K52.9 Noninfective gastroenteritis and colitis, unspecified; K31.9 Disease of stomach and duodenum, unspecified; Z20.822 Contact with and (suspected) exposure to COVID-19; F19.10 Other psychoactive substance abuse, uncomplicated; K29.70 Gastritis, unspecified, without bleeding; J10.1 Influenza due to other identified influenza virus with other respiratory manifestations; K59.03 Drug induced constipation; T40.2X5A Adverse effect of other opioids, initial encounter; K29.90 Gastroduodenitis, unspecified, without bleeding; K44.9 Diaphragmatic hernia without obstruction or gangrene; K26.9 Duodenal ulcer, unspecified as acute or chronic, without hemorrhage or perforation; K29.80 Duodenitis without bleeding; Y92.89 Other specified places as the place of occurrence of the external cause
CPT/HCPCS: 36415; 71045; 74018; 74176; 74250; 80048; 80053; 80076; 80307; 80320; 81001; 82270; 82607; 82746; 83013; 83036; 83605; 84443; 85007; 85014; 85018; 85025; 85027; 85610; 86850; 86900; 86901; 87426; 87804; 96365; 96375; G0378; J2003; J2250; J2405; J2470; J2704; J3490